=== PATIENT | female | born 1990 ===

== ENCOUNTER 2019-07-03 14:21 | Observation (INO) | payer OTHER ==
[~2019-07-03] VITALS: Ht 167.6 cm; Wt 130.2 kg
== END 2019-07-03 16:00 | disposition home or self-care (01) ==
LOC: SPU 14:21
PROVIDERS: ADMIT Obstetrics & Gynecology; ATTEND Obstetrics & Gynecology
DX: O62.9 Abnormality of forces of labor, unspecified (principal); O24.113 Pre-existing type 2 diabetes mellitus, in pregnancy, third trimester; E11.9 Type 2 diabetes mellitus without complications; O48.0 Post-term pregnancy; Z3A.40 40 weeks gestation of pregnancy
CPT/HCPCS: 81002; G0378